=== PATIENT | male | born 1940 ===

== ENCOUNTER 2018-07-10 11:46 | Outpatient (CLI) | payer MEDICARE, BC ==
--- NOTE | 2018-07-10 15:12 | CT Report ---
Reason: PERSONAL HISTORY OF NICOTINE DEPENDENCE Procedure Date: 07/10/2018 Accession Number: [id number] / [id number] Procedure: CT - Low Dose Lung Cancer Screen CPT Code: FULL RESULT: EXAM CT LUNG SCREEN EXAM DATE: 07/10/2018 12:19 PM. HISTORY: 78-year-old patient with [id number] smoking history. Currently smoking: Yes. COMPARISON: None. TECHNIQUE: CT examination of the entire thorax without contrast was performed using low-dose technique. Thin section coronal, axial, sagittal and MIP axial images were obtained. In accordance with CT protocol optimization, one or more of the following dose reduction techniques were utilized for this exam: automated exposure control, adjustment of mA and/or KV based on patient size, or use of iterative reconstructive technique. FINDINGS: Nodules: Right upper lobe: None. Right middle lobe: None. Right lower lobe: None. Left upper lobe: None. Left lower lobe: 2 mm calcified nodule on image 89, benign by definition. Emphysema: Mild. Pleura: Unremarkable. Aorta: Mild calcifications. Mediastinum: Unremarkable. Coronary calcifications: Moderate. Other pulmonary findings: Bibasilar subsegmental atelectasis. Other extrapulmonary findings: Partial visualization of a nonobstructing left renal calculus, visualized portion approximately 3 mm in size. IMPRESSION: Lung-RADS ASSESSMENT CATEGORY: 1 - benign appearance. Probability of malignancy: Less than 1%. RECOMMENDATION: Continue annual low-dose screening CT of the chest. Partial visualization of a nonobstructing renal calculus on the left. RADIA
== END 2018-07-10 11:47 | disposition home or self-care (01) ==
LOC: DI 11:46
PROVIDERS: ATTEND Student in an Organized Health Care Education/Training Program
DX: Z12.2 Encounter for screening for malignant neoplasm of respiratory organs (principal); J43.9 Emphysema, unspecified; F17.210 Nicotine dependence, cigarettes, uncomplicated

== ENCOUNTER 2020-12-14 11:46 | Outpatient (CLI) | payer MEDICARE, BC ==
--- NOTE | 2020-12-14 16:05 | CT Report ---
PROCEDURE: Low Dose Lung Cancer Screen INDICATIONS: CURRENT SMOKER TECHNIQUE: Noncontrast low-dose images were acquired from the pulmonary apices to the posterior costophrenic ang les. Multiplanar MIP reformats were then acquired. For radiation dose reduction, the following was used: automated exposure control, adjustment of mA and/or kV according to patient size. COMPARISON: 10/14/2019 FINDINGS: Image quality: Excellent. Lungs and pleura: There is mucous layering dependently along the left aspect of the trachea and exte nding into the left main bronchus. There is mild central bronchial wall thickening. No bronchiectasis . Calcified left lower lobe subpleural nodule measuring 3 mm, 4/175. No other lung nodules are present. There are linear atelectatic changes in the lingula and medial right middle lobe. No groundglass opa cities, dense consolidations, or pleural effusions. Mediastinum: Heart size is normal. Mild coronary artery calcification. No pericardial effusion. No mediastinal adenopathy by size criteria. Thoracic aorta and central pulmonary arteries are normal i n size. Esophagus is normal in caliber. No hiatal hernia. Bones and chest wall: No suspicious bony lesions. Prominent degenerative disc and endplate changes t hroughout the thoracic spine. No vertebral body compression fractures. No axillary or supraclavicula r adenopathy by size criteria. The thyroid is normal in size and there are no incidental findings. Abdomen: Scattered coarse calcifications in the pancreatic head and uncinate process. Nonobstructing left upper pole intrarenal calcification. Visible portion of solid organs are otherwise normal. IMPRESSION: 1. Left lower lobe calcified lung nodule, benign. No new nodules. 2. Lung RADS category 1. Continue annual low-dose screening as long as the patient meets established criteria. 3. Findings of reactive airways disease or chronic bronchitis. 4. Changes of remote pancreatitis and nonobstructing left upper pole intrarenal calcification. Reviewed by: Celia Elaine MD on 12/14/2020 4:04 PM PDT Approved by: Celia Elaine MD on 12/14/2020 4:04 PM PDT Station ID: [id number]
== END 2020-12-14 11:47 | disposition home or self-care (01) ==
LOC: DI 11:46
PROVIDERS: ATTEND Student in an Organized Health Care Education/Training Program
DX: Z12.2 Encounter for screening for malignant neoplasm of respiratory organs (principal); F17.210 Nicotine dependence, cigarettes, uncomplicated; R91.1 Solitary pulmonary nodule; R91.8 Other nonspecific abnormal finding of lung field